=== PATIENT | male | born 1965 | race Caucasian/White ===

== ENCOUNTER → 2023-08-27 | Day surgery (SDC) | payer MEDICAID ==
[~2023-08-27] VITALS: Ht 180.3 cm; Wt 77.1 kg
[~2023-08-27] MED LIST: BUPIVACAINE HCL/PF 0.5% (5MG/ML) 10ML ONE; CEFAZOLIN SODIUM 1000MG/VIAL ONE; CLON-866 PO; FENTANYL CITRATE/PF 50MCG/ML 2ML VIAL ONE; MIDAZOLAM HCL 2 MG/2 ML VIAL ONE; PROPOFOL 200MG/20ML VIAL IV ONE; SKIN ADHESIVE 0.7 GM EA TOP ONE; TRAM50TA3 PO; ZOLP5TAB2 PO
[2023-08-27] MEDS: LACTATED RINGERS 1,000 ML IV SCH (06:54)
[2023-08-27] MEDS: FENTANYL CITRATE/PF 50MCG/ML 2ML VIAL IV PRN (09:05)
[2023-08-27] MEDS: KETOROLAC 30MG/ML VIAL IV NR (09:14)
[2023-08-27] MEDS: HYDROCODONE/ACETAMINOPHEN 5/325MG TABLET PO PRN (09:44)
[2023-08-27] MEDS: ONDANSETRON HCL 4MG/2ML INJ IV PRN (09:44)
[2023-08-27 11:58] VITALS: BP 118/68; PULSE 65; RESP 18
[2023-08-27] MEDS: HYDROCODONE/ACETAMINOPHEN 5/325MG TABLET PO NR (11:58)
== END | disposition home or self-care (01) ==
LOC: OR 05:57
PROVIDERS: ATTEND Surgery
DX: K40.90 Unilateral inguinal hernia, without obstruction or gangrene, not specified as recurrent (principal); K21.9 Gastro-esophageal reflux disease without esophagitis; Z79.899 Other long term (current) drug therapy; Z98.890 Other specified postprocedural states
CPT/HCPCS: 49505; 93005; J3010; J3490; J0690; J1885; J2250; J2405; J2704; J7120; C1781